=== PATIENT | male | born 2000 | race Two or more races ===

== ENCOUNTER 2018-02-01 22:13 | Emergency (ER) | payer OTHER ==
[~2018-02-01] VITALS: Ht 175.3 cm; Wt 64.9 kg
[~2018-02-01 22:13] MED LIST: BENTYL10 MG ORAL; NKM; ZOFRAN4 MG ORAL
[2018-02-01 22:20] VITALS: BP 113/65
[2018-02-01] MEDS ORDERED: IBUPROFEN600 MG ORAL (22:39)
[2018-02-01] MEDS ORDERED: ZITHROMAX250 MG ORAL (22:39)
--- NOTE | 2018-02-01 22:40 | Emergency Room Report ---
History of Present Illness General Chief Complaint: Sore Throat Source: Patient Present Illness HPI This is a 18-year-old male with no past medical history. He presents with chief point of sore throat for the last week. No fever chills but no nausea no vomiting. No cough or congestion. Worse with swallowing. Better with rest. No drooling. No abdominal pain. No other complaint. Allergies: Coded Allergies: No Known Allergies (Unverified , 06/06/16) Patient History Limited by: language barrier Past Medical History: see triage record, old chart reviewed Past Surgical History: none Pertinent Family History: none Social History: Denies: smoking Immunizations: other Reviewed Nursing Documentation: PMH: Agreed; PSxH: Agreed Nursing Documentation-PMH Past Medical History: No Stated History Hx Cardiac Problems: No Hx Gastrointestinal Problems: No Hx Neurological Problems: No Review of Systems Eye: Denies: eye pain, blurred vision ENT: Reports: throat pain; Denies: ear pain, nose congestion, throat swelling Respiratory: Denies: cough, shortness of breath Cardiovascular: Denies: chest pain, palpitations Gastrointestinal: Denies: abdominal pain, diarrhea, nausea, vomiting Musculoskeletal: Denies: back pain, joint pain Skin: Denies: rash Neurological: Denies: headache, numbness Endocrine: Denies: increased thirst, increased urine Hematologic/Lymphatic: Denies: easy bruising All Other Systems: negative except mentioned in HPI Physical Exam Vital Signs Date Time Temp Pulse Resp B/P (MAP) Pulse Ox O2 Delivery O2 Flow Rate FiO2 02/01/18 22:16 98.3 90 18 113/65 97 98.2 vitals normal Sp02 EP Interpretation: reviewed, normal General Appearance: well appearing, no apparent distress, alert Head: normocephalic, atraumatic Eyes: bilateral eye PERRL, bilateral eye EOMI ENT: hearing grossly normal, pharyngeal erythema Neck: full range of motion, supple, no meningismus Respiratory: chest non-tender, lungs clear, normal breath sounds Cardiovascular #1: regular rate, rhythm, no murmur Gastrointestinal: normal bowel sounds, non tender, no mass, no organomegaly, no bruit, non-distended Musculoskeletal: back normal, gait/station normal, normal range of motion Psychiatric: mood/affect normal Skin: warm/dry Medical Decision Making Diagnostic Impression: Primary Impression: Pharyngitis, acute Qualified Codes: J02.9 - Acute pharyngitis, unspecified ER Course Patient presents with pharyngitis. No evidence of retropharyngeal abscess, peritonsillar abscess or neoplastic process. We'll discharge home with antibiotics. Last Vital Signs Date Time Temp Pulse Resp B/P (MAP) Pulse Ox O2 Delivery O2 Flow Rate FiO2 02/01/18 22:20 98.2 90 18 113/65 97 98.2 Status: unchanged Disposition: HOME, SELF-CARE Condition: Stable Scripts Azithromycin* (ZITHROMAX*) 250 Mg Tablet 250 MG ORAL DAILY, #6 TAB 0 Refills Take two tables once daily for 1 day, then one tablet once daily for 4 days. Prov: ANTELMO LOWE M.D. 02/01/18 Ibuprofen* (MOTRIN*) 600 Mg Tablet 600 MG ORAL THREE TIMES A DAY, #30 TAB 0 Refills Prov: ANTELMO LOWE M.D. 02/01/18 Patient Instructions: Sore Throat Additional Instructions: Increase fluid. Salt water gargle. Follow-up with your doctor in 7 days. Return if worse. ANTELMO LOWE M.D. Feb 01, 2018 22:40
[2018-02-01 22:45] VITALS: BP 113/65
== END 2018-02-01 22:54 | disposition home or self-care (01) ==
LOC: EMR 22:27
DX: J02.9 Acute pharyngitis, unspecified (principal)
CPT/HCPCS: 99283

== ENCOUNTER 2018-05-27 22:14 | Emergency (ER) | payer OTHER ==
[~2018-05-27] VITALS: Ht 177.8 cm; Wt 66.7 kg
[~2018-05-27 22:14] MED LIST changes: +IBUPROFEN600 MG ORAL; +ZITHROMAX250 MG ORAL
[2018-05-27 22:37] VITALS: BP 128/65
[2018-05-27] MEDS ORDERED: CEPHALEXIN500 MG ORAL (22:51)
--- NOTE | 2018-05-27 22:51 | Emergency Room Report ---
History of Present Illness General Chief Complaint: Male Urogenital Problems Source: Patient Present Illness HPI Patient presents with complaints of burning with urination Increased frequency of urination He reports that he was tested for STDs and was told that it was negative This was 3 days ago when his symptoms first started Reports getting a dose of azithromycin denies any other medication Denies any testicular pain denies any fevers or chills denies any lymph node swelling Denies any blood in the urine Allergies: Coded Allergies: No Known Allergies (Unverified , 06/06/16) Patient History Past Medical History: see triage record Pertinent Family History: none Reviewed Nursing Documentation: PMH: Agreed; PSxH: Agreed Nursing Documentation-PMH Past Medical History: No Stated History Hx Cardiac Problems: No Hx Gastrointestinal Problems: No Hx Neurological Problems: No Review of Systems All Other Systems: negative except mentioned in HPI Physical Exam Vital Signs Date Time Temp Pulse Resp B/P (MAP) Pulse Ox O2 Delivery O2 Flow Rate FiO2 05/27/18 22:27 98.2 95 16 133/68 95 Sp02 EP Interpretation: reviewed, normal General Appearance: well appearing, no apparent distress Head: normocephalic, atraumatic Eyes: bilateral eye PERRL, bilateral eye EOMI ENT: hearing grossly normal, normal pharynx Neck: supple, thyroid normal Respiratory: lungs clear Cardiovascular #1: regular rate, rhythm Gastrointestinal: non tender, soft Genitourinary: no CVA tenderness Musculoskeletal: normal inspection Neurologic: alert, oriented x3 Skin: normal color Lymphatic: no adenopathy Medical Decision Making Diagnostic Impression: Primary Impression: Urethritis ER Course Patient also reports being sexually active as well I did discuss with him that even though the tests that were performed were negative he should be covered for GC and chlamydia Therefore I am injection of Rocephin was also given Given the patient's complaints of urethritis type symptoms Is also placed on Keflex for the next several days and will return with ongoing symptoms Last Vital Signs Date Time Temp Pulse Resp B/P (MAP) Pulse Ox O2 Delivery O2 Flow Rate FiO2 05/27/18 22:27 98.2 95 16 133/68 95 Status: improved Disposition: HOME, SELF-CARE Condition: Improved Scripts Cephalexin* (KEFLEX*) 500 Mg Capsule 500 MG ORAL EVERY 6 HOURS for 7 Days, CAP Prov: Rosy Patino DO 05/27/18 Additional Instructions: Patient is provided with the discharge instructions notified to follow up with primary doctor in the next 2-3 days otherwise return to the er with any worsening symptoms. Please note that this report is being documented using [employer] technology. This can lead to erroneous entry secondary to incorrect interpretation by the dictating instrument. Rosy Patino DO May 27, 2018 22:51
[2018-05-27] MEDS ORDERED: Lidocaine 1% MPF 10mg/ml 5ml INJ ONE (23:00)
[2018-05-27 23:15] VITALS: BP 130/72
== END 2018-05-27 23:15 | disposition home or self-care (01) ==
LOC: EMR 22:50
DX: N34.2 Other urethritis (principal)
CPT/HCPCS: 96372; 96374; 99284